=== PATIENT | male | born 1995 | race Native Hawaiian/Other Pacific Islander ===

== ENCOUNTER 2022-03-28 20:08 | Emergency (ER) | payer OTHER, SELFPAY ==
--- NOTE | 2022-03-28 20:22 | CRLHL7_ITS ---
For Patients: As a result of the Century Cures Act, medical imaging exams and procedure reports are released immediately into your electronic medical record. You may view this report before your referring provider. If you have questions, please contact your health care provider. INDICATION: Upper abdominal pain. TECHNIQUE: CT abdomen and pelvis acquired with 100 cc Isovue 370 IV contrast. COMPARISON: None. FINDINGS: Lower chest: Mild bibasilar atelectasis. Liver: Unremarkable. Normal in size and attenuation. No suspicious masses. Gallbladder and bile ducts: Possible hyperdense material within the gallbladder lumen. No mural thickening. No stones or inflammation. No biliary dilatation. Pancreas: Unremarkable. No mass or inflammation. Spleen: Unremarkable. Normal in size. No masses. Adrenal glands: Unremarkable. No nodules. Kidneys: Unremarkable. No suspicious masses, stones, or hydronephrosis. GI tract: Unremarkable. Normal in caliber. Normal appendix. Vasculature: Abdominal aorta is normal in caliber. Mesenteric arteries are patent. Lymph nodes: No lymphadenopathy. Peritoneum/Abdominal Wall: Unremarkable. No free air or significant free fluid. Pelvis: Unremarkable. Bones: Unremarkable for age. IMPRESSION: Possible biliary sludge within the gallbladder. No evidence for cholecystitis. If there is persistent clinical concern, recommend right upper quadrant ultrasound. Otherwise, unremarkable CT of the abdomen and pelvis. No acute findings. Please note that all CT scans at this facility use dose modulation, iterative reconstruction, and/or weight-based dosing when appropriate to reduce radiation dose to as low as reasonably achievable. Dictated by Lamin Huerta MD @ 03/28/2022 9:01:39 PM (Electronically Signed)
[2022-03-28 20:24] VITALS: BP 167/104; PULSE 96; RESP 18; TEMP 35.7; O2SAT 97; BMI 36.8
--- NOTE | 2022-03-28 20:24 | ED_ITS ---
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 Does report that he ate anything different than normal, has had no trauma or injury. He has not had any abdominal surgery, considers himself quite healthy. No diarrhea, no dysuria, no hematuria. No real nausea vomiting. The pain started today has been fairly steady today. Has not had an appetite today. No chest pain, no shortness of breath. No fevers chills or illness feeling. Related Data Home Medications Medication Instructions Recorded Confirmed No Known Home Medications 03/28/22 03/28/22 Allergies Allergy/AdvReac Type Severity Reaction Status Date / Time No Known Drug Allergies Allergy Verified 03/28/22 20:52 Review of Systems Status of ROS: Reports: 6 or more systems reviewed and unremarkable except as noted in History and below [facility] Social History Smoking Status: Smoker, status unknown Non-prescribed substance use: denies use Exam Narrative: Exam Narrative: Objective: In general patient is no apparent distress moves about the room somewhat restless. HEENT is unremarkable no scleral icterus mouth clear neck is supple pulse regular Abdomen tenderness epigastrium and periumbilical area some mild bilateral tenderness tenderness in symptoms in his right upper quadrant but no guarding. No peritonitis. No palpable mass. Extremities normal neurologic nonfocal Const: Vital Signs, click to edit/add: Vital Signs - 24 hr 03/28/22 20:24 03/28/22 22:48 Temperature 96.2 F L Pulse Rate [Pulse Oximeter] 96 90 Respiratory Rate 18 20 Blood Pressure [Ri ght Upper Arm] 167/104 H 132/81 Pulse Oximetry 97 95 Oxygen Delivery Me thod Room Air Course Vital Signs Vital signs: Initial Vital Signs Temperature 96.2 F L 03/28/22 20:24 Temperature Source Temporal Artery Scan 03/28/22 20:24 Pulse Rate 96 03/28/22 20:24 Pulse Rhythm 03/28/22 20:24 Respiratory Rate 18 03/28/22 20:24 Blood Pressure 167/104 H 03/28/22 20:24 Blood Pressure Mean 125 03/28/22 20:24 Blood Pressure Position Sitting 03/28/22 20:24 Pulse Oximetry 97 03/28/22 20:24 Oxygen Delivery Method 03/28/22 20:24 Vital Signs Temperature 96.2 F L 03/28/22 20:24 Pulse Rate 96 03/28/22 20:24 Respiratory Rate 18 03/28/22 20:24 Blood Pressure 167/104 H 03/28/22 20:24 Pulse Oximetry 97 03/28/22 20:24 Oxygen Delivery Method 03/28/22 20:24 Temperature 96.2 F L 03/28/22 20:24 Pulse Rate 90 03/28/22 22:48 Respiratory Rate 20 03/28/22 22:48 Blood Pressure 132/81 03/28/22 22:48 Pulse Oximetry 95 03/28/22 22:48 Oxygen Delivery Method 03/28/22 20:24 Medical Decision Making [facility] Narrative Medical decision making narrative: Twenty 6-year-old male with epigastric pain and I think at this point given his history would do CT scan of his abdomen sure does not have his does not have obstruction, colitis, gallbladder issue. May need ultrasound as well. Will check labs electrolytes liver function profile, IV fluids IV pain medication. Disposition pending findings above Addendum: The patient's white blood cell count is elevated, his CT scan looks unremarkable other potential for gallbladder sludge. He needs an additional pain medication after his for morphine will give him Dilaudid 1 mg IV, IV fluids, additional laboratory studies. His CR P is elevated at 3.3. Will get a gallbladder ultrasound Addendum: The patient does have some biliary sludge noted on ultrasound, but no evidence of cholecystitis. He does have a mildly elevated white blood cell count. He is better in terms of his pain control. Fide given additional morphine. I am going to have him start on Augmentin twice a day, and [place] as needed, will have him come back to see our surgical team. Within the next 24-48 hours. He should return sooner if there is worsening changes or problems. I suspect he may have some very mild gallbladder inflammation or simply barely colic, and I think pain control and antibiotics to be reasonable at this time and then surgical follow-up. Lab Data Labs: Lab Results 03/28/22 03/28/22 03/28/22 Range/Units 20:30 20:30 20:30 WBC 15.36 H (4.50-11.00) K/uL RBC 5.44 (4.30-5.90) m/uL Hgb 14.7 (13.5-17.5) gm/dL Hct 44.0 (37.0-53.0) % MCV 81 (80-100) fL MCH 27 (26-34) pg MCHC 33 (32-36) gm/dL RDW Coeff of Earnestine 13.2 (11.5-15.5) % Plt Count 300 (140-440) K/uL Neut % (Auto) 62.8 (42.0-72.0) % Lymph % (Auto) 26.8 (20-44) % [place] % (Auto) 6.9 (0.0-11.0) % Eos % (Auto) 2.8 (0.0-7.0) % Baso % (Auto) 0.3 (0.0-3.0) % Neut # (Auto) 9.60 H (1.7-7.0) K/uL Lymph # (Auto) 4.10 H (0.90-2.90) K/uL [place] # (Auto) 1.10 H (0.00-0.90) K/UL Eos # (Auto) 0.40 (0.00-0.50) K/uL Baso # (Auto) 0.00 (0.00-0.30) K/uL Sodium 141 (135-149) mmol/L Potassium 3.5 L (3.6-5.1) mmol/L Chloride 103 (96-114) mmol/L Carbon Dioxide 29 (20-32) mmol/L BUN 14 (5-24) mg/dL Creatinine 0.7 (0.5-1.5) mg/dL Estimated Creat Clear 146.89 Estimated GFR 129 ml/min Glucose 124 H (60-115) mg/dL Calcium 9.2 (8.4-10.6) mg/dL Total Bilirubin 0.6 (0.1-1.5) mg/dL Direct Bilirubin 0.2 (0.0-0.5) mg/dL AST 25 (12-35) U/L ALT 31 (4-50) U/L Alkaline Phosphatase 108 (40-150) U/L C-Reactive Protein 3.3 H (0.5-1.0) mg/dL Total Protein 8.5 H (6.0-8.3) g/dL Albumin 5.0 (3.3-5.0) g/dL Amylase 78 (18-89) U/L Ethyl Alcohol < 0.01 L (0.01-0.03) % SARS-CoV-2 (PCR) (Negative) Influenza Type A (PCR) (Negative) Influenza Type B (PCR) (Negative) RSV (PCR) (Negative) 03/28/22 Range/Units 20:39 WBC (4.50-11.00) K/uL RBC (4.30-5.90) m/uL Hgb (13.5-17.5) gm/dL Hct (37.0-53.0) % MCV (80-100) fL MCH (26-34) pg MCHC (32-36) gm/dL RDW Coeff of Earnestine (11.5-15.5) % Plt Count (140-440) K/uL Neut % (Auto) (42.0-72.0) % Lymph % (Auto) (20-44) % [place] % (Auto) (0.0-11.0) % Eos % (Auto) (0.0-7.0) % Baso % (Auto) (0.0-3.0) % Neut # (Auto) (1.7-7.0) K/uL Lymph # (Auto) (0.90-2.90) K/uL [place] # (Auto) (0.00-0.90) K/UL Eos # (Auto) (0.00-0.50) K/uL Baso # (Auto) (0.00-0.30) K/uL Sodium (135-149) mmol/L Potassium (3.6-5.1) mmol/L Chloride (96-114) mmol/L Carbon Dioxide (20-32) mmol/L BUN (5-24) mg/dL Creatinine (0.5-1.5) mg/dL Estimated Creat Clear Estimated GFR ml/min Glucose (60-115) mg/dL Calcium (8.4-10.6) mg/dL Total Bilirubin (0.1-1.5) mg/dL Direct Bilirubin (0.0-0.5) mg/dL AST (12-35) U/L ALT (4-50) U/L Alkaline Phosphatase (40-150) U/L C-Reactive Protein (0.5-1.0) mg/dL Total Protein (6.0-8.3) g/dL Albumin (3.3-5.0) g/dL Amylase (18-89) U/L Ethyl Alcohol (0.01-0.03) % SARS-CoV-2 (PCR) Negative SARS-CoV-2 (Negative) Influenza Type A (PCR) Negative PCR FLU A (Negative) Influenza Type B (PCR) Negative PCR FLU B (Negative) RSV (PCR) Negative PCR RSV (Negative) Discharge Plan Discharge Clinical Impression: Abdominal pain, acute, Biliary sludge Patient Disposition: Home w/ Parent or Adult Condition: Improved Additional Instructions: Light activity, light diet, follow-up with 1 of our surgical consultants tomorrow or within 48 hours. Augmentin and [place] for home. Off work for a couple of days. Please see if we can have our surgical team nurses call him from the clinic with an appointment time tomorrow. Activity Level: Light activity Discharge Diet: Low Fat/Low Cholesterol Prescriptions: No Action No Known Home Medications Follow Up/Referrals: Provider,Not a Local [Primary Care Provider] - Stand Alone Forms: [employer] Info Instructions
[2022-03-28 20:36] LABS: Basophils Percent Auto 0.3 % (0.0-3.0); Eosinophils Percent Auto 2.8 % (0.0-7.0); Hemoglobin* 14.7 gm/dL (13.5-17.5); Immature Granulocytes Pct Auto 0.4 %; Lymphocytes Percent Auto 26.8 % (20-44); Mean Corpuscular HGB Conc 33 gm/dL (32-36); Mean Corpuscular Hemoglobin 27 pg (26-34); Mean Corpuscular Volume 81 fL (80-100); Monocytes Percent Auto 6.9 % (0.0-11.0); Neutrophils Percent Auto 62.8 % (42.0-72.0); Platelet Count* 300 K/uL (140-440); RDW Coefficient of Variation % 13.2 % (11.5-15.5); Red Blood Count 5.44 m/uL (4.30-5.90); White Blood Count* 15.36 K/uL (4.50-11.00)
[2022-03-28] MEDS: MORPHINE 4 MG/ML INJ IVP ×2 (20:39→22:49)
[2022-03-28 20:41] LABS: Slide Review Reflex No
[2022-03-28 20:53] LABS: Chloride* 103 mmol/L (96-114); Potassium* 3.5 mmol/L (3.6-5.1); Sodium* 141 mmol/L (135-149)
[2022-03-28 20:55] LABS: Alanine Aminotransferase* 31 U/L (4-50); Alkaline Phosphatase* 108 U/L (40-150); Amylase* 78 U/L (18-89); Aspartate Amino Transferase* 25 U/L (12-35); Bilirubin Direct* 0.2 mg/dL (0.0-0.5); Bilirubin Total* 0.6 mg/dL (0.1-1.5); Total Protein* 8.5 g/dL (6.0-8.3)
[2022-03-28 20:56] LABS: Carbon Dioxide* 29 mmol/L (20-32); Creatinine* 0.7 mg/dL (0.5-1.5); Est. Creatinine Clearance* 146.89; Estimated Glomerular Filt Rate 129 ml/min
[2022-03-28 20:57] LABS: Blood Urea Nitrogen* 14 mg/dL (5-24); Calcium* 9.2 mg/dL (8.4-10.6); Ethanol* < 0.01 % (0.01-0.03); Glucose* 124 mg/dL (60-115)
[2022-03-28 20:59] LABS: C Reactive Protein* 3.3 mg/dL (0.5-1.0)
[2022-03-28] MEDS: 0.9 % SODIUM CHLORIDE 1000 ml 1,000 ML 6000 ML IV (20:59)
[2022-03-28] MEDS: HYDROmorphone 0.5 mg/0.5 ml inj 1 MG IVP (21:03)
--- NOTE | 2022-03-28 21:05 | CRLHL7_ITS ---
For Patients: As a result of the Cures Act, medical imaging exams and procedure reports are released immediately into your electronic medical record. You may view this report before your referring provider. If you have questions, please contact your health care provider. INDICATION: Right upper quadrant pain TECHNIQUE: Ultrasound abdomen limited. Sonographic images of the right upper quadrant were obtained using gee-scale and color Doppler images. COMPARISON: None FINDINGS: Liver: The liver parenchyma is normal in echotexture. Gallbladder: The neck of the gallbladder is not well demonstrated. Small amount of layering echogenic material is present within the gallbladder which may be due to sludge. The gallbladder wall is normal in appearance. No pericholecystic fluid is present. No sonographic Matos???s sign is present. Common bile duct: 5 mm. No intrahepatic biliary ductal dilatation seen. Pancreas: The visualized portions of the pancreatic head and body are normal in appearance. Right Kidney: The right kidney is normal in appearance and echotexture. No hydronephrosis or ureterectasis is seen. Vascular: The visualized abdominal aorta and IVC are unremarkable. IMPRESSION: 1. Small amount of layering echogenic material is present within the gallbladder which may be due to sludge. Dictated by Rolando Wallace MD @ 03/28/2022 10:27:34 PM Dictated by: Rolando Wallace MD @ 03/28/2022 22:27:37 (Electronically Signed)
[2022-03-28 21:23] LABS: PCR FLU A Negative PCR FLU A (Negative); PCR FLU B Negative PCR FLU B (Negative); PCR RSV Negative PCR RSV (Negative); SARS PCR* Negative SARS-CoV-2 (Negative)
[2022-03-28 22:48] VITALS: BP 132/81; PULSE 90; RESP 20; O2SAT 95
[2022-03-28] MEDS: KETOROLAC 30 MG/ML inj 15 MG IVP (22:50)
== END 2022-03-28 23:20 | disposition home or self-care (01) ==
PROVIDERS: Emergency Provider Family Medicine
DX: R10.0 Acute abdomen (principal); K83.8 Other specified diseases of biliary tract
CPT/HCPCS: 36415; 74177; 76705; 80048; 80076; 82077; 82150; 85025; 86140; 87502; 87634; 87635; 96374; 96375; 96376; 99284; 99285; J1170; J1885; J2270; J7030; Q9967